=== PATIENT | male | born 1965 | race African-American/Black ===

== ENCOUNTER 2022-12-08 08:10 | Emergency (ER) | payer OTHER ==
[~2022-12-08] VITALS: Ht 175.3 cm; Wt 80.0 kg
[2022-12-08 08:25] VITALS: O2SAT 100
[2022-12-08] MEDS ORDERED: INSULIN REGULAR (HUMULIN R) 300UNITS/3ML VIAL SUBCUT ONE (09:00)
[2022-12-08] MEDS ORDERED: GABAPENTIN 400MG CAPSULE PO ONE (09:00)
[2022-12-08 10:48] VITALS: BP 145/98; PULSE 69; RESP 16
== END 2022-12-08 10:49 | disposition home or self-care (01) ==
LOC: ER 08:10
DX: E11.65 Type 2 diabetes mellitus with hyperglycemia (principal)
CPT/HCPCS: 99283; 82962; J1815

== ENCOUNTER 2023-01-28 11:53 | Emergency (ER) | payer MEDICAID, OTHER ==
[~2023-01-28] VITALS: Ht 175.3 cm; Wt 91.0 kg
[2023-01-28 12:04] VITALS: TEMP 98; O2SAT 98
[2023-01-28] MEDS ORDERED: CODE473S5 MT (16:39)
[2023-01-28] MEDS ORDERED: AZIT250T12 MT (16:39)
[2023-01-28 16:45] VITALS: BP 165/84; PULSE 101; RESP 20
[2023-01-28] MEDS ORDERED: IBUPROFEN 800MG TABLET PO ONE (16:45)
== END 2023-01-28 17:45 | disposition home or self-care (01) ==
LOC: ER 12:30
DX: J06.9 Acute upper respiratory infection, unspecified (principal); I10 Essential (primary) hypertension; E78.00 Pure hypercholesterolemia, unspecified; E11.9 Type 2 diabetes mellitus without complications
CPT/HCPCS: 71045; 93005; 99283

== ENCOUNTER 2023-02-28 20:46 | Emergency (ER) | payer MEDICAID ==
[~2023-02-28] VITALS: Ht 177.8 cm; Wt 77.0 kg
[~2023-02-28 20:46] MED LIST: AZIT250T12 MT; CODE473S5 MT
[2023-02-28 20:53] VITALS: TEMP 98.7; O2SAT 99
[2023-02-28] MEDS ORDERED: FOLIC ACID 1 MG, THIAMINE HCL 100 MG, MVI, ADULT NO.1 10 ML in DEXTROSE 5% WATER 1,000 ML IV ONE ×4 (21:15)
[2023-02-28] MEDS ORDERED: DEXTROSE 50% WATER 50ML SYRINGE IV ONE (21:15)
[2023-02-28 21:32] LABS: BASOPHILS % 0.7 % (0.0-2.0); DIFFERENTIAL COMMENT 0; HEMOGLOBIN. 13.6 g/dL (14.0-18.0); LYMPHOCYTES % 19.3 % (20.0-50.0); MEAN CORPUSCULAR HEMOGLOBIN 23.7 pg (28.0-32.0); MEAN CORPUSCULAR HGB CONC 30.9 g/dL (31.0-37.0); MEAN CORPUSCULAR VOLUME 76.6 fL (80.0-94.0); MEAN PLATELET VOLUME 7.1 fl (7.4-10.4); MONOCYTES % 7.2 % (2.0-8.0); NEUTROPHILS % 71.8 % (40.0-76.0); PLATELET 344 x1000/uL (130-400); RED BLOOD CELL COUNT 5.74 mill/uL (4.7-6.1); RED CELL DISTRIBUTION WIDTH 15.3 % (11.6-14.6); WHITE BLOOD COUNT 7.8 x1000/uL (4.5-11.0)
[2023-02-28 21:47] LABS: AMMONIA < 10 uMol/L (<32)
[2023-02-28 21:51] LABS: ALANINE AMINOTRANSFERASE 27 IU/L (10-49); ALBUMIN 4.2 g/dL (3.2-4.8); ASPARTATE AMINOTRANSFERASE 25 IU/L (<34); BILIRUBIN TOTAL 0.3 mg/dL (0.1-1.0); CALCIUM 9.8 mg/dL (8.7-10.4); CARBON DIOXIDE 31 mEq/L (21-32); CHLORIDE 105 mEq/L (98-107); CREATININE 0.8 mg/dL (0.6-1.3); ETHANOL BLOOD < 10 mg/dL (<10); POTASSIUM 3.3 mEq/L (3.5-5.1); PROTEIN TOTAL 7.5 g/dL (6.0-8.3); SODIUM 142 mEq/L (136-145); THYROID STIMULATING HORMONE 0.78 uIU/mL (0.55-4.78); UREA NITROGEN BLOOD 13 mg/dL (9-23)
[2023-02-28 21:52] LABS: GLUCOSE 41 mg/dL (70-105)
[2023-02-28] MEDS ORDERED: KCL 20MEQ/100ML PREMIX 100 ML IV ONE (22:30)
[2023-03-01 01:24] LABS: TROPONIN I HIGH SENSITIVITY 4 ng/L (3.0-53)
[2023-03-01 02:28] LABS: GLUCOSE URINE 1+ (NEGATIVE); KETONES URINE NEGATIVE (NEGATIVE)
[2023-03-01 02:49] LABS: *COCAINE SCREEN URINE PRESUMPTIVE POSITIVE (NEGATIVE)
[2023-03-01 02:50] LABS: *AMPHETAMINES SCREEN URINE NEGATIVE (NEGATIVE); *BARBITURATES SCREEN URINE NEGATIVE (NEGATIVE); *BENZODIAZEPINES SCREEN URINE NEGATIVE (NEGATIVE); ECSTASY MDMA SCREEN URINE NEGATIVE (NEGATIVE); METHADONE URINE SCREEN NEGATIVE (NEGATIVE); OPIATES URINE SCREEN NEGATIVE (NEGATIVE); PHENCYCLIDINE URINE SCREEN NEGATIVE (NEGATIVE)
[2023-03-01 04:59] VITALS: BP 127/86; PULSE 88; RESP 16
[2023-03-01] MEDS ORDERED: FUROSEMIDE 20MG/2ML VIAL IVP ONE (06:45)
[2023-03-01] MEDS ORDERED: FUROSEMIDE 40MG/4ML VIAL IVP SCH (06:45)
[2023-03-01 06:55] LABS: CLARITY URINE HAZY (CLEAR); COLOR URINE YELLOW (YELLOW)
[2023-03-01 06:56] LABS: NITRITE URINE NEGATIVE (NEGATIVE); OCCULT BLOOD URINE NEGATIVE (NEGATIVE); PH URINE 5.5 (4.5-8.0); PROTEIN URINE NEGATIVE (NEGATIVE); SPECIFIC GRAVITY URINE 1.013 (1.005-1.030)
[2023-03-01 06:57] LABS: LEUKOCYTE ESTERASE URINE TRACE (NEGATIVE); UROBILINOGEN URINE 0.2 E.U./dL (0.2-1.0)
[2023-03-01 06:59] LABS: RBC URINE 0-2 /hpf (0-2); SQUAMOUS EPITHELIAL CELL URINE FEW /lpf (RARE/1+)
[2023-03-01 07:00] LABS: BACTERIA URINE TRACE
== END 2023-03-01 10:10 | disposition left against medical advice (07) ==
LOC: ER 20:55 → EDBEDREQTM 03-01 06:49 → EDBEDREQ 03-01 06:49 → ER 03-01 10:10
DX: E11.649 Type 2 diabetes mellitus with hypoglycemia without coma (principal); G93.41 Metabolic encephalopathy; I11.0 Hypertensive heart disease with heart failure; I50.9 Heart failure, unspecified; Z86.73 Personal history of transient ischemic attack (TIA), and cerebral infarction without residual deficits
CPT/HCPCS: 80053; 80320; 82140; 82962 ×2; 83880; 84443; 85025; 84484; 36415; 71045; 70450; 96367; 96365; 96366; 96375; 99291; 80305; 81003; 93005; J3490 ×2; J3480; J3411; J7070; J1940; G0480

== ENCOUNTER 2023-07-06 22:37 | Emergency (ER) | payer MEDICAID ==
[~2023-07-06] VITALS: Ht 172.7 cm; Wt 77.0 kg
[~2023-07-06 22:37] MED LIST changes: -CODE473S5 MT; +CODE473S7 MT
[2023-07-06 23:12] VITALS: O2SAT 98
[2023-07-06 23:14] VITALS: TEMP 97.8
[2023-07-07 01:38] VITALS: BP 116/78; PULSE 88; RESP 18
[2023-07-07] MEDS: MAGNESIUM/ALUMINUM HYDROXIDE/SIMETHICONE 30ML UDC PO ONE (02:51)
[2023-07-07] MEDS: ASPIRIN 325MG EC TABLET PO ONE (02:51)
== END 2023-07-07 06:25 | disposition left against medical advice (07) ==
LOC: ER 22:37
DX: R07.89 Other chest pain (principal); R10.11 Right upper quadrant pain; E11.9 Type 2 diabetes mellitus without complications; E78.00 Pure hypercholesterolemia, unspecified; I10 Essential (primary) hypertension; Z86.73 Personal history of transient ischemic attack (TIA), and cerebral infarction without residual deficits
CPT/HCPCS: 71045; 93005; 99284; 76705; Z7610

== ENCOUNTER 2023-11-30 04:00 | Emergency (ER) | payer MEDICAID ==
[~2023-11-30] VITALS: Ht 180.3 cm; Wt 70.0 kg
[2023-11-30 04:08] VITALS: TEMP 98.7; O2SAT 100
[2023-11-30 04:47] VITALS: BP 126/81; PULSE 90; RESP 16; O2SAT 98
== END 2023-11-30 04:49 ==
LOC: ER 04:00
DX: F19.10 Other psychoactive substance abuse, uncomplicated (principal); I10 Essential (primary) hypertension; E78.00 Pure hypercholesterolemia, unspecified; E11.9 Type 2 diabetes mellitus without complications; Z00.00 Encounter for general adult medical examination without abnormal findings; Z98.890 Other specified postprocedural states
CPT/HCPCS: 82962; 99283

== ENCOUNTER 2024-04-27 14:02 | Emergency (ER) | payer MEDICAID ==
[~2024-04-27] VITALS: Ht 172.7 cm; Wt 70.0 kg
[2024-04-27 14:09] VITALS: O2SAT 100
[2024-04-27 14:24] VITALS: BP 125/82; PULSE 97; RESP 18; TEMP 36.9; O2SAT 98
[2024-04-27] MEDS ORDERED: TOPUD MT (15:28)
[2024-04-27] MEDS ORDERED: LIDO700A15 TP (15:29)
[2024-04-27 15:39] VITALS: TEMP 98.4
[2024-04-27] MEDS: ACETAMINOPHEN 325MG TABLET PO ONE (15:39)
== END 2024-04-27 15:41 | disposition home or self-care (01) ==
LOC: ER 14:02
DX: M54.42 Lumbago with sciatica, left side (principal); E11.42 Type 2 diabetes mellitus with diabetic polyneuropathy; E78.00 Pure hypercholesterolemia, unspecified; I10 Essential (primary) hypertension
CPT/HCPCS: 99283; Z7610 ×3; A4606